=== PATIENT | female | born 1970 | race Caucasian/White ===

== ENCOUNTER → 2017-09-18 | Outpatient (CLI) | payer OTHER | LOC: BMCIMAGING 13:26 | PROVIDERS: ATTEND Physician Assistant | DX: M79.672 Pain in left foot (principal) ==

== ENCOUNTER → 2017-10-18 | Outpatient (CLI) | payer OTHER | LOC: FIMAGING 11:58 | PROVIDERS: ATTEND Physician Assistant | DX: Z12.31 Encounter for screening mammogram for malignant neoplasm of breast (principal) ==

== ENCOUNTER → 2018-07-29 | Outpatient (CLI) | payer OTHER | LOC: BMCIMAGING 14:07 | PROVIDERS: ATTEND Internal Medicine Endocrinology, Diabetes & Metabolism | DX: Z13.820 Encounter for screening for osteoporosis (principal); M85.89 Other specified disorders of bone density and structure, multiple sites; Z13.29 Encounter for screening for other suspected endocrine disorder; E83.52 Hypercalcemia; Z78.0 Asymptomatic menopausal state | CPT/HCPCS: 76536-PO ==

== ENCOUNTER 2018-08-24 19:52 | Emergency (ER) | payer OTHER ==
[2018-08-24 20:01] VITALS: BP 112/76
--- NOTE | 2018-08-24 20:05 | EDPHY ---
H & P Stated Complaint: Finger Lac Time Seen by Provider: 08/24/18 20:04 HPI/ROS: HPI: This is a 48-year-old female who presents with Chief Complaint: Left 3rd finger laceration Location: Left middle finger Quality: Laceration Duration: 1 hr prior to arrival Signs and Symptoms: + bleeding, no radiation, no numbness, no weakness, no tingling, no incontinence, no decreased range of motion, no swelling, no pain, no fever Timing: Acute Severity: Mild Context: Patient is right-hand dominant, presents with accidentally cutting the edge of her left middle finger near her nail with a knife while cutting onions this evening. She reports that continued to bleed despite direct pressure for over an hours she came to the emergency room to obtain stitches. Reports tetanus is current. She denies any paresthesias, weakness, decreased range of motion. Modifying Factors: Direct pressure Comment: ROS: A comprehensive 10 system review of systems is otherwise negative aside from elements mentioned in the history of present illness. MEDICAL/SURGICAL/SOCIAL HISTORY: Medical history: Depression, postmenopausal Surgical history: Denies Social history: never smoked. CONSTITUTIONAL: Polite and cooperative middle-aged white female who appears younger than stated age awake and alert, no obvious distress HEENT: Atraumatic and normocephalic. NECK: supple EXTREMITIES: 2/2 pulses, strength 5/5, left middle finger on the lateral aspect of nail shows 1/2 cm superficial, linear, laceration without bleeding; no nail involvement; DIP/PIP/MCP flexion/extension intact with good light touch sensation. no deformities, no clubbing, no cyanosis or edema. NEUROLOGICAL: no focal neuro deficits. GCS 15. Light touch sensation intact. SKIN: Warm and dry, no erythema. no rash. Good capillary refill. Source: Patient Exam Limitations: No limitations - Personal History LMP (Females 10-55): Post Menopausal Current Tetanus Diphtheria and Acellular Pertussis (TDAP): Yes - Medical/Surgical History Hx Asthma: No Hx Chronic Respiratory Disease: No Hx Diabetes: No Hx Cardiac Disease: No Hx Renal Disease: No Hx Cirrhosis: No Hx Alcoholism: No Hx HIV/AIDS: No Hx Splenectomy or Spleen Trauma: No Other PMH: Depression - Social History Smoking Status: Never smoked Constitutional: Initial Vital Signs Temperature (C) 36.7 C 08/24/18 19:59 Heart Rate 66 08/24/18 19:59 Respiratory Rate 18 08/24/18 19:59 Blood Pressure 112/76 08/24/18 19:59 O2 Sat (%) 97 08/24/18 19:59 O2 Delivery Mode Room Air Allergies/Adverse Reactions: diphenhydramine [From Benadryl] Allergy (Verified 08/24/18 19:59) Home Medications: Medication Instructions Recorded Zoloft 50mg (*) 08/24/18 Medical Decision Making Procedures: Procedure: Laceration repair. Verbal consent was obtained from the patient. The 1 cm, simple, superficial laceration on the lateral aspect of the middle left finger was not anesthetized in the usual fashion. The wound was irrigated, draped and explored to its base with a gloved finger. There were no deep structures involved. No tendon injury was identified. The wound was repaired with Dermabond. The procedure was performed by myself. ED Course/Re-evaluation: Tetanus is up-to-date. No anesthesia provided. Copiously irrigated and Dermabond used to obtain hemostasis. Verbal and written wound care instructions provided No signs of neurovascular compromise/tenting of skin/compartment syndrome/ extremities and joints examined above and below area of concern and are neurovascularly intact. This patient was seen under the supervision of my secondary supervising physician. I evaluated care for this patient independently. Discussed this patient with Dr. Carpenter who did not see the patient. Differential Diagnosis: Differential diagnosis includes but is not limited to laceration, nerve injury, tendon injury, nail injury, foreign body. Departure - Departure Disposition: Home, Routine, Self-Care Clinical Impression: Laceration of middle finger of left hand without complication Qualifiers: Encounter type: initial encounter Qualified Code(s): S61.213A - Laceration without foreign body of left middle finger without damage to nail, initial encounter Condition: Good Instructions: Laceration (ED), Skin Adhesive Care (ED) Additional Instructions: Keep the dressing dry and in place for 48 hours. After 48 hours, you may remove the dressing; wash the site daily with mild soap and water; then pat dry. Allow the skin glue to slowly dissolve on its own. This should take a few days. Take Tylenol 650 mg every 4 hours and/or Ibuprofen 600 mg every 8 hours with food as needed for pain. Referrals: Willuhn,Becca, PA [Primary Care Provider] - As per Instructions
[2018-08-24] MEDS ORDERED: SKIN ADHESIVE (DERMABOND) 1 EACH TP ONE ×3 (20:10→20:45)
== END 2018-08-24 20:31 | disposition home or self-care (01) ==
PROC: 0HQGXZZ Repair Left Hand Skin, External Approach (ICD-10-PCS; principal; 2018-08-24)
DX: S61.213A Laceration without foreign body of left middle finger without damage to nail, initial encounter (principal); Y93.G1 Activity, food preparation and clean up; Y92.9 Unspecified place or not applicable; Y99.8 Other external cause status